=== PATIENT | male | born 1955 | race Caucasian/White ===

== ENCOUNTER 2020-07-26 13:59 | Inpatient (IN) | payer MEDICAID ==
[~2020-07-26] VITALS: Ht 188 cm; Wt 71.8 kg
[2020-07-26] MEDS ORDERED: MORPHINE SULFATE 4 MG/ML CPJ (NOT FOR IM USE) IV STA (14:16)
[2020-07-26] MEDS ORDERED: ONDANSETRON HCL 4MG/2ML INJ IV STA (14:16)
[2020-07-26] MEDS ORDERED: SODIUM CHLORIDE 0.9% 1,000 ML IV ONE (14:16)
[2020-07-26 14:30] LABS: EOSINOPHILS % 2.3 % (0.0-5.0); HEMATOCRIT. 21.7 % (42.0-52.0); HEMOGLOBIN. 7.1 g/dL (14.0-18.0); LYMPHOCYTES % 8.6 % (20.0-50.0); MEAN CORPUSCULAR VOLUME 88.5 fL (80.0-94.0); MEAN PLATELET VOLUME 6.8 fl (7.4-10.4); MONOCYTES % 10.2 % (2.0-8.0); NEUTROPHILS % 77.9 % (40.0-76.0); PLATELET 306 x1000/uL (130-400); RED BLOOD CELL COUNT 2.45 mill/uL (4.7-6.1); RED CELL DISTRIBUTION WIDTH 16.1 % (11.6-14.6)
[2020-07-26 14:36] LABS: CHLORIDE 99 mEq/L (98-107)
[2020-07-26 14:42] LABS: INR 1.3; PARTIAL THROMBOPLASTIN TIME 28.7 sec (23.4-31.0); PROTHROMBIN TIME 13.1 sec (9.6-11.0)
[2020-07-26] MEDS ORDERED: LIDOCAINE HCL 1% 20ML VIAL (Pyxis) INJ ONE (16:47)
[2020-07-26] MEDS ORDERED: SODIUM BICARBONATE 4% (2.4MEQ) 5ML VIAL IV ONE (16:48)
[2020-07-26 17:11] LABS: CLARITY URINE CLEAR (CLEAR); COLOR URINE YELLOW (YELLOW); KETONES URINE TRACE (NEGATIVE); LEUKOCYTE ESTERASE URINE NEGATIVE (NEGATIVE); NITRITE URINE NEGATIVE (NEGATIVE); OCCULT BLOOD URINE NEGATIVE (NEGATIVE); PROTEIN URINE NEGATIVE (NEGATIVE); SPECIFIC GRAVITY URINE 1.014 (1.005-1.030); UROBILINOGEN URINE 0.2 E.U./dL (0.2-1.0)
[2020-07-26] MEDS ORDERED: ACETAMINOPHEN 325MG TABLET PO PRN (17:45)
[2020-07-26] MEDS ORDERED: ONDANSETRON HCL 4MG/2ML INJ IV ONE (17:45)
[2020-07-26] MEDS: MORPHINE SULFATE 2 MG/ML CPJ (NOT FOR IM USE) IV PRN (18:42)
[2020-07-26 18:47] LABS: TOTAL IRON BINDING CAPACITY 215 ug/dL (250-450)
[2020-07-26 20:33] LABS: *AMPHETAMINES SCREEN URINE NEGATIVE (NEGATIVE); *BARBITURATES SCREEN URINE NEGATIVE (NEGATIVE); *BENZODIAZEPINES SCREEN URINE NEGATIVE (NEGATIVE); *COCAINE SCREEN URINE NEGATIVE (NEGATIVE); METHADONE URINE SCREEN NEGATIVE (NEGATIVE)
[2020-07-26 20:34] LABS: CANNABINOID URINE SCREEN NEGATIVE (NEGATIVE); OPIATES URINE SCREEN PRESUMTIVE POSITIVE (NEGATIVE); PHENCYCLIDINE URINE SCREEN NEGATIVE (NEGATIVE)
[2020-07-26 20:36] LABS: SODIUM URINE RANDOM < 5 mEq/L
[2020-07-26 20:41] LABS: MEAN CORPUSCULAR HEMOGLOBIN 33.3 pg (28.0-32.0); MEAN CORPUSCULAR VOLUME 99.4 fL (80.0-94.0); PLATELET 271 x1000/uL (130-400); RED BLOOD CELL COUNT 2.05 mill/uL (4.7-6.1); RED CELL DISTRIBUTION WIDTH 16.3 % (11.6-14.6)
[2020-07-26 21:20] LABS: HEMATOCRIT 20.4 % (42.0-52.0); HEMOGLOBIN 6.8 g/dL (14.0-18.0)
[2020-07-26 22:00] VITALS: BP 96/53
[2020-07-27] VITALS (11 sets, daily range): BP systolic 92–109; BP diastolic 55–74
[2020-07-27] MEDS: SODIUM CHLORIDE 0.9% 1,000 ML IV SCH ×3 (04:55→21:36)
[2020-07-27 08:47] LABS: CHLORIDE 105 mEq/L (98-107)
[2020-07-27 08:52] LABS: PHOSPHORUS 6.2 mg/dL (2.5-4.9)
[2020-07-27 09:51] LABS: BASOPHILS % 1.1 % (0.0-2.0); EOSINOPHILS % 5.1 % (0.0-5.0); HEMATOCRIT. 26.4 % (42.0-52.0); LYMPHOCYTES % 8.3 % (20.0-50.0); MEAN CORPUSCULAR HEMOGLOBIN 27.8 pg (28.0-32.0); MEAN CORPUSCULAR VOLUME 87.9 fL (80.0-94.0); MEAN PLATELET VOLUME 7.2 fl (7.4-10.4); MONOCYTES % 10.6 % (2.0-8.0); NEUTROPHILS % 74.9 % (40.0-76.0); PLATELET 233 x1000/uL (130-400); RED BLOOD CELL COUNT 3.01 mill/uL (4.7-6.1); RED CELL DISTRIBUTION WIDTH 16.4 % (11.6-14.6)
[2020-07-27 10:07] LABS: HEMOGLOBIN. 8.4 g/dL (14.0-18.0)
[2020-07-27] MEDS ORDERED: PNEUMOCOCCAL 23-VAL P-SAC VAC 0.5 ML IM ONE (12:00)
[2020-07-27] MEDS: DOCUSATE SODIUM 250MG CAPSULE PO SCH (13:31)
[2020-07-27 17:42] LABS: HEPATITIS B SURFACE ANTIGEN NEGATIVE
[2020-07-27] MEDS: FERROUS SULFATE 325MG TABLET PO SCH (17:47)
[2020-07-27 19:12] LABS: HEPATITIS A AB IGM Equiv (NEGATIVE)
[2020-07-28] VITALS (8 sets, daily range): BP systolic 99–120; BP diastolic 58–72
[2020-07-28] MEDS: MORPHINE SULFATE 2 MG/ML CPJ (NOT FOR IM USE) IV PRN ×3 (01:16→21:52)
[2020-07-28] MEDS ORDERED: PNEUMOCOCCAL 23-VAL P-SAC VAC 0.5 ML IM ONE (03:00)
[2020-07-28] MEDS: ONDANSETRON HCL 4MG/2ML INJ IV PRN ×3 (06:56→20:35)
[2020-07-28 07:34] LABS: BASOPHILS % 0.8 % (0.0-2.0); EOSINOPHILS % 3.4 % (0.0-5.0); HEMATOCRIT. 25.6 % (42.0-52.0); HEMOGLOBIN. 9.1 g/dL (14.0-18.0); LYMPHOCYTES % 9.4 % (20.0-50.0); MEAN CORPUSCULAR HEMOGLOBIN 35.2 pg (28.0-32.0); MEAN CORPUSCULAR VOLUME 99.5 fL (80.0-94.0); MEAN PLATELET VOLUME 7.2 fl (7.4-10.4); NEUTROPHILS % 75.4 % (40.0-76.0); PLATELET 237 x1000/uL (130-400); RED BLOOD CELL COUNT 2.57 mill/uL (4.7-6.1); RED CELL DISTRIBUTION WIDTH 16.3 % (11.6-14.6)
[2020-07-28] MEDS: FERROUS SULFATE 325MG TABLET PO SCH ×3 (07:50→17:48)
[2020-07-28 08:08] LABS: *CREATININE RANDOM URINE 89.4 mg/dL (Not Estab.); MICROALBUMIN RANDOM URINE 26.6 ug/mL (Not Estab.)
[2020-07-28 08:40] LABS: CHLORIDE 103 mEq/L (98-107)
[2020-07-28] MEDS: DOCUSATE SODIUM 250MG CAPSULE PO SCH (09:00)
[2020-07-28] MEDS: PANTOPRAZOLE SODIUM 40 MG/VIAL IV SCH ×2 (12:53→20:35)
[2020-07-28] MEDS: SODIUM CHLORIDE 0.9% 1,000 ML IV SCH (12:54)
[2020-07-28] MEDS ORDERED: FENTANYL CITRATE/PF 50MCG/ML 2ML VIAL ONE (13:04)
[2020-07-28] MEDS ORDERED: SODIUM BICARBONATE 4% (2.4MEQ) 5ML VIAL IV ONE (13:04)
[2020-07-28] MEDS ORDERED: LIDOCAINE HCL 1% 20ML VIAL (Pyxis) INJ ONE (13:04)
[2020-07-28 17:10] LABS: HEMATOCRIT 27.2 % (42.0-52.0); HEMOGLOBIN 8.9 g/dL (14.0-18.0)
[2020-07-29] VITALS: BP 103/52
[2020-07-29 04:00] VITALS: BP 93/53
[2020-07-29] MEDS: SODIUM CHLORIDE 0.9% 1,000 ML IV SCH ×2 (05:06→06:11)
[2020-07-29 06:59] LABS: BASOPHILS % 0.9 % (0.0-2.0); EOSINOPHILS % 2.3 % (0.0-5.0); HEMATOCRIT. 24.5 % (42.0-52.0); HEMOGLOBIN. 8.8 g/dL (14.0-18.0); LYMPHOCYTES % 8.5 % (20.0-50.0); MEAN CORPUSCULAR HEMOGLOBIN 36.3 pg (28.0-32.0); MEAN CORPUSCULAR VOLUME 101.3 fL (80.0-94.0); MEAN PLATELET VOLUME 6.9 fl (7.4-10.4); MONOCYTES % 10.2 % (2.0-8.0); NEUTROPHILS % 78.1 % (40.0-76.0); PLATELET 220 x1000/uL (130-400); RED BLOOD CELL COUNT 2.42 mill/uL (4.7-6.1); RED CELL DISTRIBUTION WIDTH 16.2 % (11.6-14.6)
[2020-07-29 07:19] LABS: CHLORIDE 105 mEq/L (98-107)
[2020-07-29] MEDS: FERROUS SULFATE 325MG TABLET PO SCH ×3 (07:50→16:55)
[2020-07-29 08:05] VITALS: BP_SYST 91; BP_SYST 94; BP_DIAS 42; BP_DIAS 45
[2020-07-29] MEDS: DOCUSATE SODIUM 250MG CAPSULE PO SCH (08:21)
[2020-07-29] MEDS: PANTOPRAZOLE SODIUM 40 MG/VIAL IV SCH ×2 (08:21→20:46)
[2020-07-29 09:06] LABS: INR 1.3; PARTIAL THROMBOPLASTIN TIME 31.5 sec (23.4-31.0); PROTHROMBIN TIME 13.5 sec (9.6-11.0)
[2020-07-29] MEDS ORDERED: PROPOFOL 200MG/20ML VIAL IV ONE (11:28)
[2020-07-29 12:00] VITALS: BP 96/50
[2020-07-29] MEDS ORDERED: OCTREOTIDE ACETATE 50 MCG/ML 1ML IV NR (13:30)
[2020-07-29] MEDS ORDERED: OCTREOTIDE 1,000 MCG in SODIUM CHLORIDE 0.9% 100 ML IV SCH (13:30)
[2020-07-29 16:00] VITALS: BP 99/54
[2020-07-29 20:12] VITALS: BP 105/63
[2020-07-29] MEDS: PROPRANOLOL HCL 10MG TABLET PO SCH (20:45)
[2020-07-30 00:45] VITALS: BP 90/49
[2020-07-30] MEDS: SODIUM CHLORIDE 0.9% 1,000 ML IV SCH (01:59)
[2020-07-30 04:00] VITALS: BP 94/46
[2020-07-30 06:46] LABS: CHLORIDE 104 mEq/L (98-107)
[2020-07-30 06:57] LABS: INR 1.3; PROTHROMBIN TIME 13.4 sec (9.6-11.0)
[2020-07-30 07:04] LABS: PHOSPHORUS 6.3 mg/dL (2.5-4.9)
[2020-07-30] MEDS: ONDANSETRON HCL 4MG/2ML INJ IV PRN (07:48)
[2020-07-30] MEDS: FERROUS SULFATE 325MG TABLET PO SCH ×3 (07:48→16:52)
[2020-07-30 07:49] LABS: BASOPHILS % 0.9 % (0.0-2.0); HEMATOCRIT. 27.6 % (42.0-52.0); HEMOGLOBIN. 8.7 g/dL (14.0-18.0); LYMPHOCYTES % 8.4 % (20.0-50.0); MEAN CORPUSCULAR HEMOGLOBIN 27.4 pg (28.0-32.0); MEAN CORPUSCULAR VOLUME 86.8 fL (80.0-94.0); MONOCYTES % 8.2 % (2.0-8.0); NEUTROPHILS % 79.5 % (40.0-76.0); PLATELET 193 x1000/uL (130-400); RED BLOOD CELL COUNT 3.18 mill/uL (4.7-6.1); RED CELL DISTRIBUTION WIDTH 16.7 % (11.6-14.6)
[2020-07-30 08:00] VITALS: BP 101/64
[2020-07-30] MEDS: DOCUSATE SODIUM 250MG CAPSULE PO SCH (08:47)
[2020-07-30] MEDS: HYDROCODONE/ACETAMINOPHEN 5/325MG TABLET PO PRN ×2 (08:50→15:07)
[2020-07-30] MEDS: PROPRANOLOL HCL 10MG TABLET PO SCH (08:50)
[2020-07-30] MEDS: PANTOPRAZOLE SODIUM 40 MG/VIAL IV SCH (08:51)
[2020-07-30] MEDS: METOCLOPRAMIDE HCL 10MG/2ML VIAL IV SCH ×2 (11:48→16:02)
[2020-07-30 12:00] VITALS: BP 94/48
[2020-07-30] MEDS ORDERED: PROP10TA10 PO (13:07)
[2020-07-30] MEDS ORDERED: FERR325T23 PO (13:07)
[2020-07-30] MEDS ORDERED: OMEP40CA12 MT (13:07)
[2020-07-30] MEDS ORDERED: DOCU250C14 PO (13:07)
[2020-07-30] MEDS ORDERED: LIDOCAINE HCL 1% 20ML VIAL (Pyxis) INJ ONE (13:25)
[2020-07-30] MEDS ORDERED: SODIUM BICARBONATE 4% (2.4MEQ) 5ML VIAL IV ONE (13:25)
[2020-07-30] MEDS ORDERED: CEFTRIAXONE 1 G PREMIX 50 ML IV SCH (14:45)
[2020-07-30] MEDS ORDERED: MIDODRINE HCL 5MG TABLET PO SCH (14:45)
[2020-07-30] MEDS ORDERED: SODIUM CHLORIDE 0.9% 250 ML IV SCH ×2 (14:45→15:45)
[2020-07-30 16:00] VITALS: BP 104/50
[2020-07-30] MEDS ORDERED: CEFTRIAXONE 1,000 MG in DEXTROSE 5% WATER 50 ML IV SCH (16:00)
[2020-07-30 17:57] VITALS: BP 104/50
== END 2020-07-30 19:30 | disposition home or self-care (01) | DRG 280 ==
LOC: ER 14:05 → 6WST 16:36 → EDBEDREQTM 16:39 → EDBEDREQ 16:39 → ENRESERV 19:37
PROVIDERS: ADMIT Internal Medicine; ATTEND Internal Medicine
PROC: 0W9G3ZZ Drainage of Peritoneal Cavity, Percutaneous Approach (ICD-10-PCS; 2020-07-26)
PROC: 30233N1 Transfusion of Nonautologous Red Blood Cells into Peripheral Vein, Percutaneous Approach (ICD-10-PCS; 2020-07-27)
PROC: 0FB13ZX Excision of Right Lobe Liver, Percutaneous Approach, Diagnostic (ICD-10-PCS; 2020-07-28)
PROC: 06L38CZ Occlusion of Esophageal Vein with Extraluminal Device, Via Natural or Artificial Opening Endoscopic (ICD-10-PCS; principal; 2020-07-29)
PROC: 0W9G3ZZ Drainage of Peritoneal Cavity, Percutaneous Approach (ICD-10-PCS; 2020-07-30)
DX: K70.31 Alcoholic cirrhosis of liver with ascites (principal); J96.00 Acute respiratory failure, unspecified whether with hypoxia or hypercapnia; E43 Unspecified severe protein-calorie malnutrition; E87.1 Hypo-osmolality and hyponatremia; D72.829 Elevated white blood cell count, unspecified; N18.9 Chronic kidney disease, unspecified; K76.6 Portal hypertension; I85.11 Secondary esophageal varices with bleeding; E87.5 Hyperkalemia; K31.89 Other diseases of stomach and duodenum; F10.20 Alcohol dependence, uncomplicated; N17.9 Acute kidney failure, unspecified; K29.70 Gastritis, unspecified, without bleeding; K31.9 Disease of stomach and duodenum, unspecified; Z20.828 Contact with and (suspected) exposure to other viral communicable diseases; E88.09 Other disorders of plasma-protein metabolism, not elsewhere classified; R74.0 Nonspecific elevation of levels of transaminase and lactic acid dehydrogenase [LDH]; D50.0 Iron deficiency anemia secondary to blood loss (chronic); C22.0 Liver cell carcinoma; Z87.891 Personal history of nicotine dependence; Z68.20 Body mass index [BMI] 20.0-20.9, adult
CPT/HCPCS: 36415; 49083; 71045; 74176; 76705; 77012; 80048; 80053; 80305; 81003; 82043; 82105; 82378; 82570; 82728; 82962; 83540; 83550; 83735; 83935; 84100; 84145; 84156; 84300; 85014; 85018; 85025; 85027; 86301; 86677; 86705; 86709; 86803; 86850; 86900; 86920; 87340; 87426; 88307; 88313; 90732; 93005; 93306; 99285; C9113; J0696; J2270; J2354; J2405; J2704; J2765; J3010; J3490; J7030; J7050; J7060; P9016